=== PATIENT | male | born 1990 | race Two or more races ===

== ENCOUNTER 2021-12-04 00:28 | Emergency (ER) | payer OTHER ==
[~2021-12-04] VITALS: Ht 177.8 cm; Wt 62.1 kg
--- NOTE | 2021-12-04 00:55 | NUR ---
BIB FRIEND FOR C/O WITHNESSED SEIZURE. HX OF SEIZURE. NOT ON SEIZURE MEDICATION. PLACED COMFORTABLY IN BED. ATTACHED TO MONITOR. VITALS CHECKED. PATIENT IS AAOX4. ARMANIAN SPEAKING. PLACED ON SEIZURE PRECAUTION.
--- NOTE | 2021-12-04 01:07 | NUR ---
EMT AT BEDSIDE FOR EKG
--- NOTE | 2021-12-04 01:07 | NUR ---
20G IV LINE ESTABLISHED AT [facility]. BLOOD DRAWN AND SENT TO LAB.
--- NOTE | 2021-12-04 01:07 | NUR ---
Ok gibbons in ED - 12/04/21 at 0108 by DE IV CANNULA G20 INSERTED ON LEFT AC. BLOOD DRAWN AND SENT TO LAB.
--- NOTE | 2021-12-04 01:08 | NUR ---
Ok gibbons in [facility] - 12/04/21 at 0108 by DE CLOVISG DONE AT BEDSIDE
[2021-12-04] MEDS ORDERED: LEVETIRACETAM (500MG) 500 MG/5 ML VIAL IV ONE (01:10)
--- NOTE | 2021-12-04 01:15 | NUR ---
DR LAW ANDERSON AT PT'S BEDSIDE
[2021-12-04] MEDS ORDERED: LEVETIRACETAM (500MG) 500 MG in IV NS 0.9% 100 ML IV ONE (01:30)
[2021-12-04 01:31] LABS: BASOPHILS % (AUTO) 0.4 % (0.0-2.0); EOSINOPHILS % (AUTO) 1.2 % (0.0-6.0); HEMATOCRIT 47 % (39-51); HEMOGLOBIN 16.7 g/dL (13.5-17.5); LYMPHOCYTES # (AUTO) 1.8 K/uL (0.8-4.8); MEAN CORPUSCULAR HGB CONC 35 g/dl (31.0-36.0); MEAN CORPUSCULAR VOLUME 83 fL (80-96); MONOCYTES # (AUTO) 0.3 K/uL (0.1-1.30); MONOCYTES % (AUTO) 3.2 % (2.0-12.0); NEUTROPHILS # (AUTO) 7.6 K/uL (1.8-8.9); NEUTROPHILS % (AUTO) 77.2 % (43.0-81.0); PLATELET COUNT (AUTO) 296 K/uL (150-450); RED BLOOD CELL COUNT(AUTO) 5.71 MIL/uL (4.5-6.0); WHITE BLOOD COUNT (AUTO) 9.9 K/uL (4.3-11.0)
[2021-12-04 01:49] LABS: CALCIUM, SERUM 8.9 mg/dL (8.5-10.1); CARBON DIOXIDE 27 mmol/L (21-32); CHLORIDE 104 mmol/L (98-107); GLUCOSE 117 mg/dL (74-106); POTASSIUM 3.7 mmol/L (3.5-5.1); SODIUM SERUM 140 mmol/L (136-145); UREA NITROGEN, BLOOD 18 mg/dL (7-18)
[2021-12-04 01:55] LABS: ALANINE AMINOTRANSFERASE 34 U/L (12-78); ALBUMIN 4.3 g/dL (3.4-5.0); ALKALINE PHOSPHATASE 61 U/L (46-116); ASPARTATE AMINOTRANSFERASE 18 U/L (15-37); BILIRUBIN,DIRECT 0.1 mg/dL (0.0-0.2); BILIRUBIN,TOTAL 0.4 mg/dL (0.2-1.0); TOTAL PROTEIN, SERUM 7.9 g/dL (6.4-8.2)
[2021-12-04 01:57] LABS: ALCOHOL, BLOOD < 3 mg/dL (0-0)
--- NOTE | 2021-12-04 02:03 | NUR ---
URINE SPECIMEN SENT TO LAB
--- NOTE | 2021-12-04 02:03 | NUR ---
PT WHEELED TO CT DEPT
[2021-12-04] MEDS ORDERED: LEVE500T9 PO (03:08)
--- NOTE | 2021-12-04 03:27 | NUR ---
Patient discharged to home in stable condition. Written and verbal after care instructions given. Patient verbalizes understanding of instruction. IV removed. Catheter intact and site benign. Pressure and 4x4 applied to site. No bleeding noted.
[2021-12-04 03:30] VITALS: BP 135/70
== END 2021-12-04 03:31 | disposition home or self-care (01) ==
LOC: ER 00:30
DX: G40.409 Other generalized epilepsy and epileptic syndromes, not intractable, without status epilepticus (principal); F17.200 Nicotine dependence, unspecified, uncomplicated; Z79.899 Other long term (current) drug therapy
CPT/HCPCS: 36415; 70450; 71045; 80048; 80076; 80307; 80320; 85025; 85730; 93005; 96365; 99285; J1953; J7030 ×2; G0480